=== PATIENT | female | born 1945 | race Caucasian/White ===

== ENCOUNTER 2018-06-12 08:45 | Outpatient (CLI) | payer MEDICARE ==
[2018-06-12] MEDS ORDERED: DENOSUMAB 60 MG/ML ML SQ ONE (09:00)
== END 2018-06-12 08:46 ==
LOC: INF 08:45
PROVIDERS: ATTEND Nurse Practitioner Family
DX: M81.0 Age-related osteoporosis without current pathological fracture (principal)
CPT/HCPCS: 96372; J0897